=== PATIENT | male | born 1995 | race Caucasian/White ===

== ENCOUNTER 2017-08-20 11:48 | Emergency (ER) | payer MEDICAID, OTHER ==
[~2017-08-20] VITALS: Ht 193 cm; Wt 109.4 kg
[2017-08-20 12:00] VITALS: BP 148/96
[2017-08-20] MEDS ORDERED: HYDROcodone/APAP 5/325 TABLET ONE ×2 (12:49→12:58)
[2017-08-20] MEDS ORDERED: HYDROcodone/APAP 5/325 TABLET PO ONE (13:00)
[2017-08-20] MEDS ORDERED: LIDOCAINE-MPF 1%, 2ML ONE (13:59)
== END 2017-08-20 14:19 | disposition home or self-care (01) ==
LOC: ED 14:13
DX: K08.89 Other specified disorders of teeth and supporting structures (principal); F17.200 Nicotine dependence, unspecified, uncomplicated
CPT/HCPCS: 64400; 99284